=== PATIENT | male | born 1955 | race Caucasian/White ===

== ENCOUNTER 2022-10-31 11:07 | Outpatient (CLI) | payer MEDICARE, BC | END 2022-10-31 11:08 | disposition home or self-care (01) | LOC: CSHRAD 11:07 | PROVIDERS: ATTEND Internal Medicine | DX: R53.82 Chronic fatigue, unspecified (principal); R63.4 Abnormal weight loss | CPT/HCPCS: 71046 ==

== ENCOUNTER 2025-01-29 12:44 | Outpatient (CLI) | payer MEDICARE | END 2025-01-29 12:45 | disposition home or self-care (01) | LOC: CSHCT 12:44 | PROVIDERS: ATTEND Internal Medicine | DX: R06.00 Dyspnea, unspecified (principal) | CPT/HCPCS: 71250 ==